=== PATIENT | female | born 2000 | race Caucasian/White ===

== ENCOUNTER 2019-04-05 20:01 | Emergency (ER) | payer MEDICAID ==
[~2019-04-05] VITALS: Ht 167.6 cm; Wt 78.2 kg
[2019-04-05 20:42] VITALS: Ht 167.6 cm; Wt 78.2 kg
[2019-04-05 22:45] VITALS: BP 130/77
== END 2019-04-05 22:45 | disposition home or self-care (01) ==
LOC: ED 20:01
DX: J06.9 Acute upper respiratory infection, unspecified (principal); J45.909 Unspecified asthma, uncomplicated; Z85.850 Personal history of malignant neoplasm of thyroid

== ENCOUNTER 2019-04-24 13:38 | Emergency (ER) | payer MEDICAID ==
[~2019-04-24] VITALS: Ht 167.6 cm; Wt 78.5 kg
[2019-04-24 14:12] VITALS: Ht 167.6 cm; Wt 78.5 kg
[2019-04-24 14:44] LABS: PLATELET COUNT 321 x10^3mcL (130-400); RED CELL DISTRIBUTION WIDTH 12.1 % (11.5-14.5)
[2019-04-24 14:45] LABS: BASOPHIL % 0 % (0-2)
[2019-04-24 14:51] LABS: CALCIUM 8.4 mg/dL (8.5-10.1); CARBON DIOXIDE 27.3 mmol/L (21-32); CHLORIDE SERUM 101 mmol/L (98-107); CREATININE SERUM 0.7 mg/dL (0.6-1.0); GFR1 > 60 mL/min; GLUCOSE SERUM 90 mg/dL (74-106); POTASSIUM SERUM 3.9 mmol/L (3.5-5.1); SODIUM SERUM 136 mmol/L (136-145)
[2019-04-24 14:56] LABS: ALBUMIN 4.1 g/dL (3.4-5.0); ALKALINE PHOSPHATASE 71 U/L (46-116); ALT/SGPT 17 U/L (14-59); AST/SGOT 23 U/L (15-37); BILIRUBIN TOTAL 0.4 mg/dL (0.20-1.00)
[2019-04-24 14:57] LABS: TOTAL PROTEIN, SERUM 8.8 g/dL (6.4-8.2)
[2019-04-24 15:06] LABS: FREE T4 1.35 ng/dL (0.76-1.46); FREE THYROXINE INDEX 4.7 ug/dL (1.4-4.5); T4(THYROXINE) 13.5 ug/dL (4.7-13.3)
[2019-04-24 15:20] LABS: T3 TOTAL 1.12 ng/mL
[2019-04-24 16:29] VITALS: BP 102/71
== END 2019-04-24 16:29 | disposition home or self-care (01) ==
LOC: ED 13:38
PROVIDERS: Emergency Medicine
DX: R53.1 Weakness (principal); R42 Dizziness and giddiness; J45.909 Unspecified asthma, uncomplicated; Z90.89 Acquired absence of other organs; Z98.890 Other specified postprocedural states
CPT/HCPCS: 36415; 84439